=== PATIENT | male | born 1955 | race Caucasian/White ===

== ENCOUNTER 2019-06-05 08:45 | Day surgery (SDC) | payer BC ==
[~2019-06-05] VITALS: Ht 170.2 cm; Wt 120.7 kg
[~2019-06-05 08:45] MED LIST: ALDACTAZIDE 251 EACH PO; ARMOUR THYROID90 MG PO; ASPIR 8181 MG PO; CALCIUM-MAGNES1 EAC2 PO; CINNAMON500 MG PO; CO Q-10100 MG PO; FENOFIBRATE160 MG PO; GAVISCON ES TA1 EACH PO; GLYBURIDE5 MG PO; LEVEMIR100 UNIT/1 SUB-Q; LIPITOR40 MG PO; METFORMIN HCL500 MG PO; PEPCID AC10 MG PO; PROBIOTIC1 EAC1 PO; RAMIPRIL10 MG PO; VITAMIN D325 MC2 PO; VITAMIN E400 UNI4 PO; [UNRECOGNIZED DRUG - OTHER] PO; [UNRECOGNIZED DRUG - OTHER] PO
--- NOTE | 2019-06-05 13:42 | NUR ---
06/05/19 1342 Iris Mendoza 1328- PT ARRIVES TO PACU NONAROUSABLE TO NOXIOUS STIMULI WITH AN OPA IN PLACE. OXYGEN SAT HIGH 90'S TO 100% ON 10L VIA MASK. RESP EVEN AND UNLABORED. 1329- PT AROUSING AND TRYING TO PULL OUT OPA WITH HIS HANDS. PT INSTRUCTED TO OPEN HIS MOUTH. PT IS ABLE TO PERFORM THIS AND THE OPA IS REMOVED. OXYGEN TITRATED DOWN TO 6L VIA MASK. 1338- ICE PACK PLACED TO PT'S ABD WITH GOWN IN BETWEEN SKIN AND ICE PACK. PT GIVEN A FOLDED BLANKET TO USE TO SPLINT ABD. PT ENCOURAGED TO COUGH AND DEEP BREATHE. OXYGEN TITRATED OFF.
--- NOTE | 2019-06-05 14:14 | NUR ---
PT ARRIVES TO DS RM 4 FROM PACU AWAKE AND ALERT. PT STATES PAIN "LOW GRADE" AND RATES 4/10 IN ABD. PT RESP EVEN AND UNLABORED, RT CALLED TO SET UP PT PERSONAL CPAP MACHINE, SATS 92-97% ON RA. PT SPOUSE AT BEDSIDE, CALL LIGHT WITHIN REACH. SCD'S IN PLACE. PT PROVIDED ICED WATER.
[2019-06-05] MEDS ORDERED: NORCO 5-325 TA1 EACH PO (16:07)
--- NOTE | 2019-06-05 16:19 | NUR ---
[id number]: PT PROVIDED SUGAR FREE JELLO AND WATER REFILLED. PT SPOUSE REMAINS AT BEDSIDE, CALL LIGHT WITHIN REACH. [id number]: PT HAS URGE TO VOID, ASSISTED TO SIDE OF BED WITH 2 RNS. PT DENIES DIZZINESS OR NAUSEA WITH POSITION CHANGE. PT STANDS AT SIDE OF BED, TAKES 2 STEPS AND BEGINS TO FEEL "WOBBLY". PT ENCOURAGED TO SIT ON SIDE OF BED. PROVIDED URINAL. PT VOIDS APPROXIMATELY 25 MLS CONCENTRATED YELLOW URINE. PT BACK IN BED AND BLADDER SCANNED OF 77 MLS. 1545: DR. BRAVO NOTIFED OF PT URINARY RETENTION, GIVES VERBAL ORDER TO DISCHARGE PT WITHOUT VOIDING 100 MLS AND STATES TO EDUCATE PT TO RETURN TO ED IF UNABLE TO VOID ONCE HOME.
--- NOTE | 2019-06-05 16:27 | NUR ---
INSTRUCTED PT IF ANY URINARY PROBLEMS DR BRAVO WANTS HIM TO GO TO EMERGENCY DEPT. STATES OK.
--- NOTE | 2019-06-05 16:37 | NUR ---
PT PROVIDED DIET STANDING ROCK SODA AND SUGAR FREE PUDDING PER REQUEST. PT SPOUSE DOWNSTAIRS GETTING SOMETHING TO EAT. PT CALL LIGHT WITHIN REACH.
--- NOTE | 2019-06-05 16:42 | OR ---
[facility] [address], [place] [address] Signed DATE OF OPERATION: 06/05/2019 SURGEON: Lora Bravo MD PREOPERATIVE DIAGNOSES: Chronic cholecystitis and cholelithiasis. POSTOPERATIVE DIAGNOSES: Chronic cholecystitis and cholelithiasis. PROCEDURE PERFORMED: Laparoscopic cholecystectomy with intraoperative cholangiogram (prolonged and difficult at 1 hour and 35 minutes). ESTIMATED BLOOD LOSS: Minimal. FINDINGS: Radha clearly had chronic inflammatory changes to the gallbladder and surrounding tissues. He had 10 large stones in the gallbladder. The intraoperative cholangiogram was unremarkable. Due to the shape of his liver and his obesity, we had to have an additional nurse scrub in to help hold the gallbladder up and down the way. It took 1 hour 35 minutes to the entire surgery. The triangle of Calot was very deep, chronically inflamed, and very difficult dissection. This surgery took well over 30 minutes longer than usual. All these factors combined to make his procedure prolonged and difficult. INDICATIONS: Radha is a 63-year-old, obese, diabetic gentleman with a body mass index of 44. He has been having trouble particularly last few weeks with right upper quadrant abdominal pain. Although in retrospect he said it has been longer. He has had difficulty with the pain, bloating and belching, and anorexia. He has lost more than 18 pounds. He went to his primary care provider. An ultrasound of the right upper quadrant showed multiple stones within the gallbladder. Some measured up to 2 cm in diameter. There was borderline thickening to the gallbladder wall. The common bile duct was unremarkable at 5 mm. In the office, I gave him a brochure on the gallbladder. We looked at that carefully together. He understands the location and function of the gallbladder we discussed laparoscopic versus open cholecystectomy. He understands expected intraop and postop course. There is risk of surgery including, but not limited to bleeding, infection, scarring, change in contour of the skin, damage to bowel, damage to main bile duct, incisional hernias, and other unforeseen comorbidities. He had Electronically Signed By: LORA BRAVO MD 06/05/19 1642 PATIENT NAME: RADHA MERIDA OPERATIVE REPORT DATE OF : 57 REPORT #: [id number] PHYSICIAN: LORA BRAVO MD PCP: BHUMI NUNEZ MD REPORT IS CONFIDENTIAL AND NOT TO BE RELEASED WITHOUT AUTHORIZATION [address] [address] Signed expressed understanding and wished to proceed. PROCEDURE NOTE: I met with Radha and his in our preop area. I reviewed all this with Radha and his once again. After this, Radha was taken the operating room and placed in the supine position under general endotracheal tube anesthesia. He was given preoperative antibiotics along with subcutaneous heparin. SCDs were utilized. A Sparrow catheter was inserted with return of clear yellow urine without difficulty. He was then prepped and draped in the usual sterile fashion. All trocars were placed in usual positions under direct visualization of camera without difficulty. The gallbladder was grasped and elevated in the right upper quadrant. Multiple pictures were taken throughout for photodocumentation. We realized immediately we needed an additional nurse to scrub in due to the tension on the grasper as well as the depth of his gallbladder. Fortunately, we did not have to introduce an additional fan retractor. With slow meticulous dissection, we made our way through the triangle of Calot. We placed two clips on the cystic artery and it was divided. We then very carefully dissected out his very deep cystic duct near the neck of the gallbladder. The intraoperative cholangiocatheter was inserted initially held with our fallopian tube grasper. However, because of his significantly protuberant abdomen, we did not have room for the C-arm to clear our instrumentation. Consequently, we removed the fallopian tube grasper and used a clip in its place. Fortunately, this held and we were able to perform our intraoperative cholangiogram. We did not see any specific filling defects. The contrast flowed nicely into the duodenum. After this, the cystic duct stump was secured with a PDS Endoloop. Two clips were placed on the cystic duct stump to lyubov its location. The gallbladder was then very slowly and meticulously removed from the gallbladder fossa with the help of the cautery. His gallbladder was then very long, very wide, and it took additional time to get the gallbladder out. Eventually, we were able to place the gallbladder into our EndoCatch bag. The right upper quadrant was irrigated and suctioned out until clear. We used our laparoscopic suturing device to pass 0 Vicryl suture on either side of the fascia of the subxiphoid trocar site. This was tied down to close this fascia primarily. After this, the gas was allowed to escape and all the trocars were removed. We had to doubled the length of our trocar site at the umbilical supraumbilical trocar site. We did this to remove this rather large thickened gallbladder with 10 large stones inside. Consequently, we used four #0 Vicryl sutures in a tfarra-od-yophl and simple interrupted fashion to close the fascial defect. After this, local anesthetic was copiously injected in all trocar sites. Each trocar site was irrigated and suctioned out until clear. The dermis of each trocar site was closed with interrupted 3-0 subcuticular Monocryl sutures. We used fat 5-0 fast absorbing plain gut suture to close the skin at the umbilicus as well as the two right lateral 5 mm subcostal right subcostal trocar sites. Dry gauze and tape were then applied to all incisions. Radha was awakened from his anesthesia, extubated in the OR, and taken to recovery room in stable condition. We did remove the Sparrow catheter in the OR without difficulty. Electronically Signed By: LORA BRAVO MD 06/05/19 1642 PATIENT NAME: RADHA MERIDA OPERATIVE REPORT DATE OF : 57 REPORT #: [id number] PHYSICIAN: LORA BRAVO MD PCP: BHUMI NUNEZ MD REPORT IS CONFIDENTIAL AND NOT TO BE RELEASED WITHOUT AUTHORIZATION [address] [address] Signed Lora Bravo MD [facility] /[id number] cc: MD Lora James MD Copies: BHUMI NUNEZ MD, ANDREW L MD ~ Electronically Signed By: LORA BRAVO MD 06/05/19 1642 PATIENT NAME: RADHA MERIDA OPERATIVE REPORT DATE OF : 57 REPORT #: [id number] PHYSICIAN: LORA BRAVO MD PCP: BHUMI NUNEZ MD REPORT IS CONFIDENTIAL AND NOT TO BE RELEASED WITHOUT AUTHORIZATION
--- NOTE | 2019-06-05 16:57 | NUR ---
PT UP TO BATHROOM WITH 2 RN ASSIST. SLOW, BUT STEADY GAIT. PT ABLE TO VOID QS WITH NO PROBLEMS. PT BACK TO TO GET DRESSED, PT SPOUSE AT BEDSIDE.
--- NOTE | 2019-06-05 17:40 | NUR ---
1715: DC INSTRUCTIONS GIVEN IN PRESENCE OF PT AND SPOUSE, ALL QUESTIONS ADDRESSED. PAIN PRESCRIPTION PROVIDED IN DC PACKET AND HANDED TO SPOUSE. PT USES BATHROOM ONCE MORE BEFORE DC HOME VIA WC TO PERSONAL VEHICLE AT MAIN ENTRANCE OF HOSPITAL.
--- NOTE | 2019-06-09 12:32 | PATH ---
[facility] [address] [facility] [place], [place] [address] Signed SPECIMEN(S): A GALLBLADDER AND STONES SPECIMEN SOURCE: A. GALLBLADDER AND STONES CLINICAL HISTORY: Chronic cholecystitis, cholelithiasis. FINAL PATHOLOGIC DIAGNOSIS: Gallbladder, cholecystectomy: - Chronic cholecystitis. - Cholelithiasis. NAL:cml:C2NR MICROSCOPIC EXAMINATION: Histologic sections of all submitted blocks are examined by light microscopy. These findings, together with the gross examination, support the pathologic diagnosis. GROSS DESCRIPTION: The specimen, labeled "GP, gallbladder," is received in formalin and consists of Specimen: Previously opened gallbladder. Dimensions: 8.7 cm in length and 6.7 cm in inner circumference. Serosa: violaceous and smooth. Cystic Duct: unobstructed. Calculi: Numerous dark green gallstones within the container that range in size from 0.9-2.1 cm in greatest dimension. The gallstones shows faceted surfaces. Mucosa: Wooldridge-aragon and velvety. Wall thickness: 0.5 cm. Lymph node: No pericystic lymph nodes are grossly identified. Additional: None. Bilingual Spanish Inbound Sales sections are submitted in cassette (A1). JS (under the direct supervision of a pathologist) The Gross Description was prepared using a voice recognition system. The report was reviewed for accuracy; however, sound-alike word errors, addition and/or deletions may occur. If there is any question about this report, please contact Client Services. PERFORMING LABORATORY: The technical component was performed by Weeve, Ivett Chaves, PATIENT NAME: FUAD,RADHA D PATHOLOGY DATE OF : 57 REPORT #: [id number] PHYSICIAN: GONZALEZ DEVRIES PCP: BHUMI NUNEZ MD REPORT IS CONFIDENTIAL AND NOT TO BE RELEASED WITHOUT AUTHORIZATION [facility] [address] [place], [place] [address] [place] [address] (Banana Expert: Lala Swan MD; CLIA# [id number]). [facility] [address] [address] (Banana Expert: Agapito Boo MD; CLIA# [id number]). Diagnostician: Meredith Rivera MD Pathologist Electronically Signed 06/09/2019 Copies: ~ PATIENT NAME: RADHA MERIDA PATHOLOGY DATE OF : 57 REPORT #: [id number] PHYSICIAN: GONZALEZ DEVRIES PCP: BHUMI NUNEZ MD REPORT IS CONFIDENTIAL AND NOT TO BE RELEASED WITHOUT AUTHORIZATION
== END 2019-06-05 17:45 | disposition home or self-care (01) ==
LOC: DS 08:45
PROVIDERS: Colon & Rectal Surgery
PROC: BF13YZZ Fluoroscopy of Gallbladder and Bile Ducts using Other Contrast (ICD-10-PCS; 2019-06-05)
PROC: 0FT44ZZ Resection of Gallbladder, Percutaneous Endoscopic Approach (ICD-10-PCS; principal; 2019-06-05 10:15)
DX: K80.10 Calculus of gallbladder with chronic cholecystitis without obstruction (principal); I10 Essential (primary) hypertension; G47.33 Obstructive sleep apnea (adult) (pediatric); E78.5 Hyperlipidemia, unspecified; E55.9 Vitamin D deficiency, unspecified; E03.9 Hypothyroidism, unspecified; E11.9 Type 2 diabetes mellitus without complications; K21.9 Gastro-esophageal reflux disease without esophagitis; G89.29 Other chronic pain; Z79.4 Long term (current) use of insulin; E66.9 Obesity, unspecified; Z79.82 Long term (current) use of aspirin; Z79.899 Other long term (current) drug therapy; Z98.890 Other specified postprocedural states; Z68.41 Body mass index [BMI] 40.0-44.9, adult
CPT/HCPCS: 00790; 74300; J0690; J1100; J1644; J1815; J1885; J2250; J2310; J2405; J2704; J2765; J3010; J7121; Q9967

== ENCOUNTER 2020-11-04 11:57 | Inpatient (IN) | payer BC ==
[~2020-11-04] VITALS: Ht 167.6 cm; Wt 133.7 kg
[~2020-11-04 11:57] MED LIST changes: +NORCO 5-325 TA1 EACH PO
[2020-11-04] MEDS ORDERED: NP THYROID90 MG PO (12:37)
--- NOTE | 2020-11-04 19:11 | EKG ---
[facility] [address] [place] [address] Signed Normal sinus rhythm Right axis deviation Nonspecific intraventricular block Right ventricular hypertrophy Abnormal ECG When compared with ECG of 28-MAY-2019 08:23, No significant change was found Confirmed by MAURI ESCOTO MD ([id number]) on 11/04/2020 7:11:20 PM Electronically Signed By: MAURI ESCOTO MD 11/04/201910 PATIENT NAME: FUADRADHA Electrocardiogram DATE OF : 57 PHYSICIAN: MAURI ESCOTO MD REPORT #: [id number] REPORT IS CONFIDENTIAL AND NOT TO BE RELEASED WITHOUT AUTHORIZATION
--- NOTE | 2020-11-04 21:02 | NUR ---
PT WAS SWABBED FOR COVID 19
--- NOTE | 2020-11-04 21:48 | NUR ---
11/04/202147 Karen Burnham 2141: PT ARRIVES TO CCU ROOM 128, HE IS AWAKE AND ORIENTED. DOING WELL, NO PAIN AT THIS TIME.
--- NOTE | 2020-11-04 23:30 | NUR ---
PT RECOVERED FROM SURGERY IN ROOM 128, REPORT RECEIVED FROM COIL TAPERDELPIHNE Mccray AT 2200. PT IS ALERT/ORIENTED, DENIES PAIN. LUNGS CLEAR, RA. HR REGULAR. BOWEL TONES RARE, DENIES NAUSEA, ABDOMEN IS OBESE AND MODERATELY DISTENDED. LARGE MIDLINE INCISION IS COVERED WITH TAPE AND GAUZE, C/D/I. SIMONE TO RLQ DRAINGING SANGUINOUS FLUID, GAUZE DRESSING C/D/I. FRANZ PATENT, CONCENTRATED URINE. IV SITES INTACT, PATENT, IVF STARTED PER ORDERS. SCD'S ON. NG TO TO LOW CONTINUOUS SUCTION PER ORDERS, COFFEE-GROUND OUTPUT NOTED, SECUREMENT DEVICE ENFORCED WITH TAPE AND TUBING SECURED TO GOWN. MOIST ORAL SWABS PROVIDED FOR COMFORT. PT DENIES FURTHER NEEDS AT THIS TIME, CALL LIGHT AND BELONGINGS WITHIN REACH.
--- NOTE | 2020-11-04 23:39 | NUR ---
DR. ESCOTO IN TO CONSULT WITH PATIENT.
--- NOTE | 2020-11-05 00:17 | NUR ---
DR. ESCOTO ASKED THAT PT'S BLOOD SUGAR BE CHECKED: 390. PUT ORDERS IN FOR BLOOD SUGAR MONITORING AND INSULIN, 20 UNITS LANTUS ADMINISTERED AT THIS TIME. DISCUSSED PLAN OF CARE WITH PT, QUESTIONS ANSWERED.
--- NOTE | 2020-11-05 02:35 | NUR ---
CB, 11 UNITS SLIDING SCALE GIVEN PER ORDERS, DR. ESCOTO NOTIFIED. ASSESSMENT COMPLETED. PT CONTINUES TO DENY PAIN. DRESSINGS TO ABDOMEN REMAIN C/D/I. OUTPUT FROM SIMONE APPEARS MORE BROWN IN COLOR AT THIS TIME. NG REMAINS ON LOW CONTINUOUS SUCTION, OUTPUT STILL SOMEWHAT COFFEE-GROUND IN APPEARANCE. FRANZ EMPTIED, URINE REMAINS CONCENTRATED. NO OTHER CHANGES TO ASSESSMENT. PT DENIES FUTHER REQUESTS, CALL LIGHT WITHIN REACH.
--- NOTE | 2020-11-05 04:52 | NUR ---
PT RESTING WITH EYES CLOSED, NO APPARENT DISTRESS. RESPIRATIONS EVEN AND UNLABORED. VITAL SIGNS STABLE.
--- NOTE | 2020-11-05 06:18 | NUR ---
DELIVERY CREW MEMBER IN TO DRAW MORNING LABS. ASSESSMENT COMPLETED. NG FLUSHED WITH 30ML WATER, OUTPUT REMAINS COFFEE GROUND IN APPEARANCE, SECUREMENT DEVICE INTACT. MIDLINE DRESSING HAS SCANT AMOUNT OF SHADOWING NOTED, BUT IS OTHERWISE INTACT. SIMONE CONTINUES TO DRAIN BROWN FLUID, DRESSING INTACT. REMAINDER OF ASSESSMENT UNCHANGED. DENIES PAIN, NAUSEA, & SOB. CALL LIGHT WITHIN REACH.
--- NOTE | 2020-11-05 09:19 | CONS ---
[facility] [address] [place], [place] [address] Signed DATE OF CONSULTATION: 11/04/2020 CHIEF COMPLAINT: Epigastric abdominal pain. HISTORY OF PRESENT ILLNESS: Radah is a 65-year-old gentleman I had met last year when I did his laparoscopic cholecystectomy. In the meantime, he has developed supraumbilical trocar site incisional hernia. At his baseline, he has very large protuberant abdomen. He said in the last week he has had various abdominal symptoms, but this morning he awoke around 4:00 a.m. with severe pain in the epigastric region. He came to the emergency room for evaluation. Our emergency room has been extremely busy and finally gotten his lab work back and the CT scan. His white count is elevated at 24,000, but amazingly he does not appear particularly ill or toxic. He said his abdomen seems to be more protuberant than usual. The CT scan showed quite a bit of free air with thickening around the duodenum and antrum suggestive of perforated ulcer. I was therefore asked to see him as a general surgeon on-call. In the meantime, he has received cefepime and Flagyl. He likes to sit up on the edge of bed. He said it is better for his back. PAST MEDICAL HISTORY: 1. Diverticulosis. 2. Supraumbilical trocar site incisional hernia. 3. Diabetes. 4. Hyperlipidemia. 5. Hypothyroidism. 6. Hypertension. PAST SURGICAL HISTORY: Includes laparoscopic cholecystectomy in June [address] Bravo. SOCIAL HISTORY: He does not smoke or drink. He is to his Breanne at [phone]. Dr. Bhumi Slaughter is his primary care provider. He prefers the [facility]. FAMILY HISTORY: None. REVIEW OF SYSTEMS: He had 10 systems reviewed and no major findings since I saw him last year. ALLERGIES: None. Electronically Signed By: LORA BRAVO MD 11/05/20 0919 PATIENT NAME: RADHA MERIDA CONSULTATION DATE OF : 57 REPORT #: [id number] PHYSICIAN: LORA BRAVO MD PCP: BHUMI SLAUGHTER MD REPORT IS CONFIDENTIAL AND NOT TO BE RELEASED WITHOUT AUTHORIZATION [facility] [address] [place] [id number] Signed MEDICATIONS: 1. Aspirin. 2. Fenofibrate. 3. Cinnamon. 4. Calcium. 5. Magnesium. 6. Zinc. 7. Probiotic. 8. Vitamin D. 9. Fish oil. 10. Thyroid medication. 11. Metformin. 12. Glyburide. 13. Ramipril. 14. Insulin. 15. Atorvastatin. 16. Spironolactone. 17. Hydrochlorothiazide. PHYSICAL EXAMINATION: VITAL SIGNS: Blood pressure 131/76, heart rate 84, respiratory rate 18, temperature is 98.1, he is 95% on room air. He is 5 feet 6 inches at 120 kg. GENERAL: Radha is a 65-year-old gentleman who amazingly does not appear systemically ill or toxic. He is actually sitting up on the edge of his ER bed. He is quite cooperative. LUNGS: Clear to auscultation bilaterally. HEART: Regular rate and rhythm without murmurs. ABDOMEN: Obese, quite protuberant even at baseline, moderately firm and tender in the epigastric region. Amazingly, he does not seem to have peritonitis. LABORATORY DATA: His white blood count is 24,000, hemoglobin 17, neutrophils 85, bands are 5. BUN 23, creatinine 1.07, glucose 229, albumin is 4.1, lipase is 20. Urinalysis negative. RADIOGRAPHIC STUDIES: A CT scan of abdomen and and pelvis is reviewed along with the report. One could see a large amount of free air along with thickening around the antrum and duodenum with small amount of fluid. ASSESSMENT AND PLAN: Radha is a 65-year-old gentleman who appears to have a perforated duodenal and/or gastric ulcer. We are going to be taking him directly from the ER over to the operating room. He will initially go to the ICU afterwards for a day or two until he improves. I have reviewed all the above findings with Radha in detail. He understands the Electronically Signed By: LORA BRAVO MD 11/05/20 0919 PATIENT NAME: RADHA MERIDA CONSULTATION DATE OF : 57 REPORT #: [id number] PHYSICIAN: LORA BRAVO MD PCP: BHUMI SLAUGHTER MD REPORT IS CONFIDENTIAL AND NOT TO BE RELEASED WITHOUT AUTHORIZATION [address] [address] Signed laparotomy and we will probably go ahead and close the trocar site incisional hernia as well. There is risk including, but not limited to bleeding, infection, scarring, change in contour of the skin, damage to bowel, incisional hernias, pneumonia, heart attack, strokes, and other unforeseen comorbidities. He has expressed understanding and would like to proceed. Lora Bravo MD ALB/MODL /[id number] cc: MD Lora James MD Copies: BHUMI SLAUGHTER MD, ANDREW L MD ~ Electronically Signed By: LORA BRAVO MD 11/05/20918 PATIENT NAME: RADHA MERIDA CONSULTATION DATE OF : 57 REPORT #: [id number] PHYSICIAN: LORA BRAVO MD PCP: BHUMI SLAUGHTER MD REPORT IS CONFIDENTIAL AND NOT TO BE RELEASED WITHOUT AUTHORIZATION
--- NOTE | 2020-11-05 09:19 | OR ---
[facility] [address], [place] [address] Signed DATE OF OPERATION: 11/04/2020 SURGEON: Lora Bravo MD PREOPERATIVE DIAGNOSES: Perforated viscus. POSTOPERATIVE DIAGNOSIS: Perforated gastric ulcer. PROCEDURES: 1. Primary closure with Pj patch. 2. Drain placement. ESTIMATED BLOOD LOSS: Minimal. FINDINGS: Radha appeared to have a perforated ulcer on the lesser curve as the stomach joins the pyloric channel. There was a very large medicine tablet in the hole and therefore not a significant amount of bilious fluid and stomach contents had escaped. INDICATIONS: Radha is a 65-year-old gentleman I had known from last year when I did his laparoscopic cholecystectomy. He is 5 feet 6 inches tall at 265 pounds. He has a very large round protuberant abdomen. He came to the gallbladder surgery fine, but he developed supraumbilical trocar site incisional hernia. He continues to work as a here in [facility] [employer]. Since this morning around 4:00 a.m., he noticed rather severe pain in his epigastric area. It seemed to be quite abrupt. He came to the emergency room for evaluation. Our emergency room was extremely busy today with several codes and so forth. Radha was quite distended and there was some thought that he might have a bowel obstruction. He did not appear systemically ill or toxic whatsoever. Eventually, his blood work came back with a white count of 24,000. He was not acidotic. Other labs were fine. His abdominal x-rays were not particularly concerning but possibly a bowel obstruction. Then he underwent his CT scan and there were inflammatory changes around the pyloric bulb and in the antrum of the stomach with a large amount of free air. There was some fluid in the abdomen but not tremendous amounts. I had been called to see him in the emergency room as a general surgeon on-call. In the meantime, he was given cefepime and Flagyl along with subcutaneous heparin. I had met with Radha and I had reviewed the above findings with him in detail. I explained to him this more than Electronically Signed By: LORA BRAVO MD 11/05/20 0919 PATIENT NAME: RADHA MERIDA OPERATIVE REPORT DATE OF : 57 REPORT #: [id number] PHYSICIAN: LORA BRAVO MD PCP: BHUMI NUNEZ MD REPORT IS CONFIDENTIAL AND NOT TO BE RELEASED WITHOUT AUTHORIZATION [facility] [address], [place] [address] Signed likely represented a perforated ulcer of either the stomach or his pyloric channel. We can generally close these primarily and cover them with a Pj patch. He understands there is risk to surgery including, but not limited to bleeding, infection, scarring, change in contour of the skin, damage to bowel, continued leak or nonhealing of his ulcer or recurrent ulcer, incisional hernias and other unforeseen comorbidities. He had expressed understanding and wished to proceed. PROCEDURE NOTE: Radha was brought down to our operating room and placed in the supine position under general endotracheal tube anesthesia. He underwent bilateral subcostal blocks by our nurse construction management assistant to help with postoperative pain control. A Sparrow catheter had been inserted with return of clear yellow urine. SCDs were utilized. He was prepped and draped in the usual sterile fashion. We made a midline incision in the epigastric area above the hernia near his umbilicus. We left a bridge of fascia between there, probably 3 cm in length. We were able to enter the abdomen without much difficulty. He did have a little air in the stomach, but not as much as we anticipated. He had a typical soiling up around the antrum of the stomach in the duodenum. It took a few minutes to suction out some of the bilious turbid fluid and we finally found his perforated ulcer, classic about 1 cm in diameter. It appears to be on the lesser curve of the stomach and approaches the pyloric channel. But with the surrounding inflammation of the fat, it was hard to ascertain the exact location. He had adhesions of the omentum from his previous gallbladder surgery. It took just a minute to take those down. We found that he had a very large medicine tablet actually in the ulcer itself. It took a minute to remove that with a Pean clamp. The size of is quite impressive. It is at least a cm in diameter. After this, the area was irrigated and suctioned out until clear and at 1st we could not palpate the NG tube in his stomach. Later it was a better position. In the meantime, we were able to evacuate quite a bit of fluid out of his stomach and suction that out until clear. We then closed the ulcer defect with 3 interrupted 0 silk sutures. We then brought the omentum up over the area of his ulcer and was held in place with multiple interrupted 2-0 silk sutures. After this, we placed a #10 flat Tony drain over this area and brought it out through the right subcostal area through one of his previous 5 mm trocar sites. It was held in place at the skin with an interrupted 2-0 nylon suture. We then closed the midline fascia with interrupted [id number] #1 PDS sutures. The wound was irrigated and suctioned out until clear. We closed the dermis with multiple interrupted 3-0 subcuticular Monocryl sutures. The skin edges were reapproximated with mihaela. Dry gauze and tape were then applied. His Sparrow catheter was left in place. Radha was awakened from his anesthesia, extubated in the OR, and taken to recovery room in stable condition. Electronically Signed By: LORA BRAVO MD 11/05/20 0919 PATIENT NAME: RADHA MERIDA OPERATIVE REPORT DATE OF : 57 REPORT #: [id number] PHYSICIAN: LORA BRAVO MD PCP: BHUMI NUNEZ MD REPORT IS CONFIDENTIAL AND NOT TO BE RELEASED WITHOUT AUTHORIZATION [address] [address] Signed Lora Bravo MD ALB/MODL /[id number] cc: MD Bhumi Gerardo MD Copies: LORA BRAVO MD, JONATHAN MD ~ Electronically Signed By: LORA BRAVO MD 11/05/20 0919 PATIENT NAME: RADHA MERIDA OPERATIVE REPORT DATE OF : 57 REPORT #: [id number] PHYSICIAN: LORA BRAVO MD PCP: BHUMI NUNEZ MD REPORT IS CONFIDENTIAL AND NOT TO BE RELEASED WITHOUT AUTHORIZATION
--- NOTE | 2020-11-05 09:30 | NUR ---
DR. BRAVO HERE TO SEE PATIENT. ORDERS RECIEVED. IVF INCREASED O 175 ML/HR PER MD ORDERED.
--- NOTE | 2020-11-05 09:40 | NUR ---
C/O PAIN IN ABD.
--- NOTE | 2020-11-05 09:58 | NUR ---
DILAUDID 1 MG IV GIVEN FOR PAIN.
--- NOTE | 2020-11-05 12:00 | NUR ---
no change in assessment.
--- NOTE | 2020-11-05 13:36 | NUR ---
DILAUID 1 MG IV REPEATED FOR POST OP PAIN.
--- NOTE | 2020-11-05 13:45 | NUR ---
ABD DRESSING AND SIMONE DRESSING DC'D PER MD ORDERS. SAT AT BEDSIDE, SPONGE BATH GIVEN. PATIENT THEN AMBULATE IN ROOM THEN TO CHAIR. TOLERATED WELL.
--- NOTE | 2020-11-05 15:30 | NUR ---
CONTINUES TO SIT IN CHAIR. DENEIS NAUSEA OR NEED FOR PAIN MEDICATION. VISITING WITH .
--- NOTE | 2020-11-05 16:11 | NUR ---
VISITING WITH . DENIES PAIN. WILL DO ASSESSMENT AFTER PT VISITS W/. IVF CONTINUE TO INFUSE AT 175 ML/HR.
--- NOTE | 2020-11-05 17:03 | NUR ---
BACK TO BED AFTER SITTING IN CHAIR FOR 3 HRS. AMBULATED IN ROOM PRIOR TO RETURN TO BED. IS STABLE ON FEET. DENEIS PAIN OR NAUSEA.
--- NOTE | 2020-11-05 17:25 | NUR ---
DR. BRAVO UPDATE ON PATIENT STATUS AND U/O. NO FUTHER ORDERS AT THIS IFRAH.
--- NOTE | 2020-11-05 20:12 | NUR ---
PATIENT WOKE EASILY WHEN RN ENTERED ROOM. REPORTS PAIN IS MANAGABLE AT THIS TIME. VS STABLE. NO NAUSEA. NG TUBE IN PLACE. IV SITE WNL, FLUIDS PER ORDER. ACCU CHECK DONE, SSI AND LANTUS GIVEN PER ORDER.
--- NOTE | 2020-11-05 21:00 | NUR ---
PATIENT PROVIDED WITH EVENING ABX. IV SITE WNL. FRANZ EMPTIED FOR 175 MLS ALEXANDER COLORED URINE. NG TUBE FLUSHED WITH 20 TAP WATER AND CONNECTED BACK TO CONTINUOUS LOW SUCTION. OUTPUT IS A YELLOW COLOR. SCANT OUTPUT IN SIMONE DRAIN. MIDLINE INCISION IS WELL APPROXIMATED. ABD IS SOFT, MILDLY TENDER AND BOWEL SOUNDS ARE RARE. NO NAUSEA. ENCOURAGED PATIENT TO CHANGE POSITIONS NEEDED AND USE IS. VS STABLE. PATIENT DENIED FURTHER NEEDS. CALL LIGHT IN REACH.
--- NOTE | 2020-11-05 22:30 | NUR ---
PT C/O ABD PAIN 4-5/10, 5 WITH COUGHING. GIVEN 1MG DILAUDID IV SLOWLY. PT STATING STARTING TO RELAX.
--- NOTE | 2020-11-06 | NUR ---
PATIENT RESTING IN BED. REPORTS IMPROVED PAIN CONTROL. HAS BEEN SLEEPING OFF AND ON. URINE OUTPUT CONTINUES TO BE BOARDERLINE ADEQUATE AND DARK ALEXANDER IN COLOR. IV FLUIDS PER ORDER, SITE WNL. ABD IS SOFT. SIMONE HAS NOT PUT OUT ANY DRAINAGE AT THIS TIME. VS STABLE.
--- NOTE | 2020-11-06 02:36 | NUR ---
ACCU CHECK AND SSI PROVIDED PER ORDER. PATIENT REPORTS BEING COMFORTABLE. DENIES NEEDS. FRANZ DRAINING EASILY. NG TUBE IN PLACE. IV FLUIDS PER ORDER, SITE WNL.
--- NOTE | 2020-11-06 04:00 | NUR ---
PATIENT PROVIDED WITH PRN DILAUDID FOR PAIN 5/10. PATIENT DENIES NAUSEA. ABD IS SOFT. ASSISTED PATIENT TO REPOSITION. NG TUBE IN PLACE, CONTINUOUS SUCTION. MINIMAL OUTPUT. SIMONE HAS SCANT DRAINAGE.
--- NOTE | 2020-11-06 06:54 | NUR ---
PT TRANSFERED FROM CCU TO MED SURG FLOOR VIA BED. PT TOLERATED WELL. PT ORIENTED TO THIS ROOM AND POC FOR THIS SHIFT. DENIES QUESTIONS OR NEEDS AT THIS TIME. CALL LIGHT INR EACH.
--- NOTE | 2020-11-06 08:25 | NUR ---
Admin Dilaudid 1mg IVP for 5/10 abd pain.
--- NOTE | 2020-11-06 13:41 | NUR ---
Admin dilaudid 1mg IVP for reports of 7/10 abd pain. Patient walked in wallway with this RN; standby assist using walker, tolerated well.
--- NOTE | 2020-11-06 16:03 | NUR ---
Dilaudid 1mg IVP admin for reports of 7/10 abd pain. NG intact, patent with green gastric output. Bowel tones present throughout, pt reports +flatus.
--- NOTE | 2020-11-06 17:46 | NUR ---
Patient resting in bed, respirations even and non labored. NG intact, patent with brown drainage. Patient reports intermittent gas pains. Encouraged patient to walk frequently to help with GI motility. Pain is tolerable at this time. IV remains patent. No needs at this time. Call light within reach.
--- NOTE | 2020-11-06 19:06 | NUR ---
Admin 1mg dilaudid IVP for reports of 7/10 abd pain.
--- NOTE | 2020-11-06 19:36 | NUR ---
Asher red blood noted from NG. Irrigated with 30ml free water, no blood clots noted. Abdomen appears unchanged from earlier today. Incision well approx, no new drainage noted. Dr. Dc notified. New order obtained for wall suction to be LIWS. NG set to LIWS at this time.
--- NOTE | 2020-11-06 19:50 | NUR ---
RECEIVED REPORT FROM DELPHINE JIMENEZ. pt RESTING IN BED. RECENTLY REPOSITIONED. REPORTS THAT PAIN IS "BETTER" RATES 3/10 AT THIS TIME. NEW BAG OF LR HUNG. INCISION DRY AND OPEN TO AIR EXCEPT SMALL ADHESIVE BANDAGE. DRY SHADOWING NOTED ON BANDAGE. EDGES WELL APPROXIMATED. SCANT SS DRAINAGE NOTED IN DRAIN. FRANZ PUTTING OUT CONCENTRATED URINE. IV DC'd IN RIGHT HAND IT IS NO LONGER PATENT. PRESSURE DRESSING APPLIED. NG TUBE HAS DARK RED, BROWNISH OUTPUT. LOW INTERMITTENT SUCTION. DISCUSSED PLAN OF CARE WITH pt. ALL QUESTIONS ANSWERED. CALL LIGHT WITHIN REACH. WHITEBOARD UPDATED.
--- NOTE | 2020-11-06 20:41 | NUR ---
PT REQUESTED SUPPORT BLANKET FOR HIS ABDOMEN, DID COUGH, PRODUCTIVE. STATED MUCH RELIEF. STATED HE WAS BLECHING SEVERAL TIMES AND THAT MADE HIM FEEL BETTER.
--- NOTE | 2020-11-06 21:40 | NUR ---
IN TO DO ANTIBIOTIC AND ASSESSMENT. pt RESTING IN BED. REPORTED 3/10 PAIN. PASSING GAS. BOWEL TONES ARE HYPOACTIVE. INCISION AND DRAINAGE REMAINS THE SAME PRIOR ASSESSMENT. NG TUBE HAS BROWN OUTPUT. LIS. IV ANTIBIOTIC INFUSING PER ORDERS. SCROTAL EDEMA NOTED, ELEVATED TOLERATED. LEGS ELEVATED TOLERATED. NO FURTHER REQUESTS AT THIS TIME. CALL LIGHT WITHIN REACH.
--- NOTE | 2020-11-07 00:42 | NUR ---
1 PA TO THE BATHROOM. PATIENT HAD SMEAR BOWEL MOVEMENT. PATIENT IS BACK IN BED. DELPHINE CHRISTIANSON WAS WITH PATIENT. ICE CHIPS PROVIDED.
--- NOTE | 2020-11-07 00:51 | NUR ---
report received from previous rnsalty. pt up to bathroom and back to bed with seed analysis laboratory assistant assist. pt rates pain 5/10 to abd. requests prn dilaudid, administered. ng tube irrigated per pt request. immediate return of clear fluid noted in tubing. pt denies further needs. call light in reach.
--- NOTE | 2020-11-07 02:02 | NUR ---
MAINSPRING WINDER TO ROOM FOR IV PUMP ALARMING. SCHEDULED ACCUCHECK PERFORMED. PT STATES THAT PAIN IS WELL CONTROLLED AFTER PRN DILAUDID. PT DENIES FURTHER NEEDS. CALL LIGHT IN REACH.
--- NOTE | 2020-11-07 04:05 | NUR ---
ART GILDER TO ROOM FOR IV PUMP ALARMING. PT STATES THAT PAIN IS WELL CONTROLLED. REQUESTS ADDITIONAL ICE CHIPS. STATES THAT HE CAN FEEL MOVEMENT IN HIS ABDOMEN. DENIES NEED TO HAVE BM AT THIS TIME. DENIES FURTHER NEEDS. CALL LIGHT IN REACH.
--- NOTE | 2020-11-07 06:49 | NUR ---
PT ASSESSMENT COMPLETE. PT STATES THAT PAIN IS WELL CONTROLLED. DENIES SOB OR NAUSEA. REPORTS OCCASIONAL PRODUCTIVE COUGH, CLEAR PHLEGM REPORTED. BT'S ACTIVE. PT REPORTS PASSING GAS MULTIPLE TIMES. ABD VERY DISTENDED. TENDER TO PALPATION. MIDLINE INCISION ANJEL WITH SMALL BANDAID TO SUPERIOR ASPECT, SM SHADOWING NOTED TO BANDAID. BLE AND SCROTUM EDEMA NOTED. SHANK BREAKER AT BEDSIDE TO OBTAIN LABS. PT DENIES FURTHER NEEDS. CALL LIGHT IN REACH.
--- NOTE | 2020-11-07 07:34 | NUR ---
Patient awake sitting up in bed, a&ox4. Patient reports passing flatus, positive bowel tones x4 quadrants. NG intact, patent set to LIWS; light brown gastric content noted. Tony drain to RUQ; closed to bulb suction. Patient has no needs at this time. Personal supplies and call light within reach.
--- NOTE | 2020-11-07 07:59 | NUR ---
Dilaudid 1mg IVP admin for reports of 5/10 abdominal pain.
--- NOTE | 2020-11-07 09:25 | NUR ---
PATIENTS VITALS CHARTED. CALL LIGHT IN REACH. NOTHING ELSE NEEDED. PATIENT AND THIS LEATHER COVERER WILL WALK WITH PATIENT.
--- NOTE | 2020-11-07 11:35 | NUR ---
SPOKE WITH PATIENT IN ROOM. PATIENT AWAKE, ORIENTED. LIVES AT HOME WITH . IS EMPLOYED. DRIVES. HAS STAIRS INTO HOME AND STAIRS TO HIS OFFICE INSIDE OF HOUSE. BOTH HAVE RAILS. THEY DO HAVE A COUPLE CANES IN THE HOUSE. ONLY DME HE USES IS CPAP WITH NO OXYGEN NEED. THEY HAVE TUB/SHOWER COMBO. THEY DO HAVE TOILET BARS. HE STATES HE IS NOT CONCERNED IN AFFORDING MEDS/FOOD/UTILITIES. WILL DRIVE HIM HOME. HE HAS NO KNOWN BARRIERS TO DISCHARGING HOME AT THIS TIME. WE DISCUSSED USUAL POST-OP NEEDS. ENCOURAGED QUESTIONS AND TO UNDERSTAND HIS NEEDS/MEDS AT DISCHARGE.
--- NOTE | 2020-11-07 12:14 | NUR ---
Patient walked with RETAIL SALES CLERK. Tolerated well with FWW.
--- NOTE | 2020-11-07 12:24 | NUR ---
PATIENT WALKED WITH THIS OXYGEN FURNACE OPERATOR DOWN 1 MELENDEZ TO THE END. PATIENT SITTING ON COUCH. CALL LIGHT IN REACH
--- NOTE | 2020-11-07 13:36 | NUR ---
report received on this pt care assumed. pt currently at mri.
--- NOTE | 2020-11-07 14:20 | NUR ---
CALL LIGHT ANSWERED. PT REQUESTS PRN PAIN MED FOR 4/10 ABDOMINAL PAIN. PT STATES HE HAS "TWINGES" OF SHARPER PAIN. 1MG IV DILAUDID ADMINISTERED AT THIS TIME. ASSISTED PT BACK TO BED. FRESH MOUTH SWABS PROVIDED.
--- NOTE | 2020-11-07 14:46 | NUR ---
PATIENT SLEEPING VITALS CHARTED. CALL LIGHT IN REACH
--- NOTE | 2020-11-07 18:11 | NUR ---
PATIENT RESTING. VITALS AND I&O'S CHARTED. PATIENT STATED HE WILL CALL WHEN HE NEEDS ANYTHING. CALL LIGHT IN REACH
--- NOTE | 2020-11-07 18:37 | NUR ---
IN ROOM TO CHECK ON PT; IV CEFEPIME IS COMPLETE. PT DENIES NEEDS AT THIS TIME. CALL LIGHT WITHIN REACH.
--- NOTE | 2020-11-07 19:05 | NUR ---
BEDSIDE REPORT RECEIVED FROM OFFGOING RNJAYLAN.
--- NOTE | 2020-11-07 21:00 | NUR ---
PT ASSESSMENT COMPLETE. PT REPORTS ABD PAIN THAT HAS WORSENED WITH OCCASIONAL COUGH. PRN DILAUDID ADMINISTERED, SEE EMAR. PT ENDORSES SOB WHILE COUGHING, BUT STATES THAT IT RESOLVES QUICKLY WHEN HE IS NOT COUGHING. STATES THAT HE IS HAVING SCANT MUCOUS PRODUCTION. PT DENIES NASUEA. STATES THAT HE IS PASSING OCCASIONAL FLATUS. BT'S ACTIVE. ABD DISTENDED, NONTENDER TO PALPATION. MIDLINE INCISION ANJEL WITH BANDAID WITH SMALL AMOUNT OF OLD SHADOWING PRESENT. NG TUBE TO LIWS WITH GREENISH YELLOW DRAINAGE. IV FLUSHED, WNL. WATER REFRESHED FOR MOUTH SWABS. PT DENIES FURTHER NEEDS AT THIS TIME. CALL LIGHT IN REACH.
--- NOTE | 2020-11-07 21:30 | NUR ---
V/S AND I&O AND BLOOD SUAGR CHECK DONE AND DOCUMENTED. FRANZ CARE DONE.
--- NOTE | 2020-11-07 23:30 | NUR ---
PT RESTING IN BED, WAKES EASILY WHEN UTILIZATION MANAGEMENT MANAGER OPENS THE DOOR. STATES THAT HE IS DOING OKAY. DENIES NEEDS AT THIS TIME. CALL LIGHT IN REACH.
--- NOTE | 2020-11-08 02:30 | NUR ---
PT RESTING IN BED WITH EYES CLOSED. WAKES EASILY TO TOUCH AND NAME. SCHEDULED MEDICATIONS ADMINISTERED. PT ASSESSMENT COMPLETE. PT DENIES PAIN, NASUEA, OR SOB. PT CONTINUES TO HAVE OCCASSIONAL PRODUCTIVE COUGH. BT'S ACTIVE. PT CONTINUES TO REPORT OCCASIONAL FLATUS. ABD DISTENDED. NON TENDER TO PALPATION. NG TO LIWS WITH YELLOW DRAINAGE PRESENT. NG SECUREMENT DEVICE COMING LOOSE FROM PT'S NOSE, REPLACED AT THIS TIME. PT TOLERATED WELL. IV FLUSHED, WNL. PT DENIES FURTHER NEEDS AT THIS TIME. CALL LIGHT IN REACH.
--- NOTE | 2020-11-08 04:23 | NUR ---
PT REQUESTING PRN PAIN MEDCIATION FOR 4/10 ABD PAIN. ADMINISTERED, SEE EMAR. PT DENIES FURTHER NEEDS AT THIS TIME. STATES THAT HE WOULD LIKE TO SLEEP FOR A WHILE LONGER. CALL LIGHT IN REACH.
--- NOTE | 2020-11-08 06:46 | NUR ---
NG TO FRANZ GRAVITY PER ORDER. IV DECREASED TO 85. NG SECUREMENT DEVISE REAPPLIED.
--- NOTE | 2020-11-08 07:25 | NUR ---
BEDSIDE HANDOFF REPORT RECEIVED FROM MACHINE FEEDER RN. PT RESTING IN BED. PT DENIES NEEDS AT THIS TIME.
--- NOTE | 2020-11-08 08:24 | NUR ---
PT AWAKE IN ROOM. WHITE BOARD UDPATED. WARM CLOTH GIVEN FOR FACE. PT PLANS TWO WALKS WITH THIS CATH LAB RADIOLOGICAL TECHNOLOGIST TODAY. CALL LIGHT WITHIN REACH. NO FURTHER NEEDS AT THIS TIME.
--- NOTE | 2020-11-08 08:25 | NUR ---
PT RESTING IN BED. PT ON ROOM AIR, LUNG SOUNDS CLEAR, DENIES SOB. PT WITH HYPOACTIVE BOWEL TONES, DENIES NAUSEA, NG TO GRAVITY DRAIN, ABD DISTENDED AND FIRM. SIMONE DRAIN WITH SMALL AMOUNT OF SEROUS FLUID. ABD INCISION WITH OREN, OLD DRAINAGE TO BANDAID. CMS INTACT, WITHOUT EDEMA, SCDS IN PLACE. IV FLUIDS INFUSING LR AT 85, IV ABX INFUSING. BLOOD GLUCOSE 85, DISCUSSED LANTUS DOSE WITH DR. JIANG, ORDER TO DC LANTUS. DISCUSSED PLAN OF CARE FOR THE DAY, PT TO WALK IN MELENDEZ THIS TIME. PT DENIES OTHER NEEDS AT THIS TIME.
--- NOTE | 2020-11-08 09:13 | NUR ---
PT AND THIS FLEX O WRITER OPERATOR WALKED WITH FWW TO [facility] END OF HALLWAY FROM ROOM AND BACK. PT SITTING UP ON COUCH. CALL LIGHT WITHIN REACH. NO FURTHER NEEDS AT THIS TIME.
--- NOTE | 2020-11-08 10:51 | NUR ---
PATIENT BACK INTO BED. VITALS AND I&O'S CHARTED. FRANZ EMPTIED. CALL LIGHT IN REACH NOTHING ELSE NEEDED AT THIS TIME
--- NOTE | 2020-11-08 11:22 | NUR ---
PT REQUESTING PAIN MEDICATION, GIVEN 1.0MG IV DILAUDID. PT DENIES OTHER NEEDSA AT THIS TIME.
--- NOTE | 2020-11-08 13:00 | NUR ---
Spoke with pt. He states he feels better, plans on remaining in the hospital for at least one more week. NG, martinez, and IV antibiotics continue. Pt states he was able to walk in the agarwal and it was better this time.
--- NOTE | 2020-11-08 14:30 | NUR ---
PT RESTING IN BED. PT STATES PAIN TOLERABLE AT THIS TIME. PT COMPLAINT OF RIGHT THIGH PAIN, ENCOURAGED TO GET OOB AND WALK. IV CEFEPIME INFUSION STARTED. BLOOD GLUCOSE 111. ELECTRICAL TECH/PROJECT MANAGER TO ASSIST PT TO WALK IN MELENDEZ.
--- NOTE | 2020-11-08 14:51 | NUR ---
PT WALKING IN MELENDEZ WITH JESSICA TODD. TOLERATING WELL.
--- NOTE | 2020-11-08 15:08 | NUR ---
PATIENT AMBULATED IN HALLWAY, HALF A LAP AROUND NURSES STATION. PATIENT NOW BACK TO BED. CALL LIGHT IN REACH. NO FURTHER NEEDS AT THIS TIME.
--- NOTE | 2020-11-08 15:19 | NUR ---
PT AWAKE IN BED CHATTING. FRANZ EMPTIED. CALL LIGHT WITHIN REACH. NO FURTHER NEEDS AT THIS TIME.
--- NOTE | 2020-11-08 18:01 | NUR ---
PT ON ROOM AIR, LUNG SOUNDS CLEAR. NG TO GRAVITY, SMALL AMOUNT OF GREENISH/BROWN FLUID. PT WITH SIMONE DRAIN, NO SIGNIFICANT OUTPUT THIS SHIFT. ABD DISTENDED, BOWEL TONES ACTIVE, DENIES NAUSEA, PASSED FLATUS. WALKED IN MELENDEZ X2. FRANZ WITH QS URINE, RECEIVED LASIX THIS AM.
--- NOTE | 2020-11-08 19:10 | NUR ---
REPORT RECEIVED FROM DAY SHIFT RN. PT LYING IN BED ALERT AND ORIENTED. DENIES NEEDS AT THIS TIME. WHITE BOARD UPDATED. CALL LIGHT IN REACH.
--- NOTE | 2020-11-08 20:47 | NUR ---
EVENING ASSESSMENT COMPLETE. SCHEDULED MEDS ADMINISTERED PER EMAR. PT REPORTS PAIN IS TOLERABLE. DENIES NAUSEA. ABD FIRM AND DISTENDED. MIDLINE INCISION WELL APPROXIMATED WITH OREN. NO REDNESS OR DRAINAGE NOTED. BOWEL TONES ACTIVE. PT REPORTS FLATUS. SCD'S IN PLACE. FRANZ PATENT DRAINING CONCENTRATED URINE. NGT TO GRAVITY WITH SCANT AMOUNT GREEN/BROWN DRAINAGE. SIMONE WITH SCANT AMOUNT SEROUS DRAINAGE. PT DENIES QUESTIONS OR CONCERNS. CALL LIGHT IN REACH.
--- NOTE | 2020-11-08 21:18 | NUR ---
V/S AND I&O TAKEN AND RECORDED. FRANZ CARE DONE.
--- NOTE | 2020-11-08 23:15 | NUR ---
PT UP TO AMB ONE LAP AROUND NURSING UNIT WITH SBA AND FWW. SHERIDAN WELL. BACK TO BED. PILLOW CASES PLACED UNDER ABD SKIN FOLDS PT CONCERNED WITH MOISTURE DUE TO SKIN TOUCHING. SKIN INTACT AT THIS TIME. NO REDNESS OR RASH NOTED. PRN FOR PAIN ADMINISTERED FOR 4/10 ABD PAIN. PT DENIES FURTHER NEEDS AT THIS TIME. CALL LIGHT IN REACH.
--- NOTE | 2020-11-09 01:50 | NUR ---
IV ABX INFUSING ORDERED. INSULIN ADMINISTERED PER SLIDING SCALE FOR CBG OF 151. ASSISTED PT TO REPOSITION IN BED. ORAL CARE SUPPLIES PROVIDED. NO FURTHER NEEDS. CALL LIGHT IN REACH.
--- NOTE | 2020-11-09 03:51 | NUR ---
IV PUMP ALARMING. IN ROOM TO ASSESS. PT REPORTS PAIN IS TOLERABLE AT THIS TIME. DENIES FURTHER NEEDS.
--- NOTE | 2020-11-09 04:05 | NUR ---
CALL LIGHT ANSWERED. PT REQUESTING ASSISTANCE TO REPOSITION SCROTUM "THEY ARE BEING PINCHED". IN TO ASSIST. SCROTUM EDEMATOUS, ELEVATED ON PILLOW CASE. PT ABLE TO USE TRAPEZE TO REPOSITION SELF IN BED. NO FURTHER NEEDS.
--- NOTE | 2020-11-09 04:20 | NUR ---
CALL LIGHT ON. IV PUMP BEEPING, NEW BAG OF FLUID HUNG. NO REQUESTS AT THIS TIME. CALL LIGHT WITHIN REACH.
--- NOTE | 2020-11-09 05:00 | NUR ---
CALL LIGHT ON. IV PUMP BEEPING, ERROR RESOLVED. NO REQUESTS AT THIS TIME. CALL LIGHT WITHIN REACH.
--- NOTE | 2020-11-09 06:00 | NUR ---
VS AND I&O COMPLETE. ASSESSMENT UNCHANGED. PRN FOR PAIN ADMINISTERED FOR 3/10 ABD PAIN. ORAL CARE SUPPLIES PROVIDED.
--- NOTE | 2020-11-09 07:20 | NUR ---
TOOK BEDSIDE REPORT ON PT. PT LAYING IN BED CURRENTLY. DENIES NEEDS AT THIS TIME.
--- NOTE | 2020-11-09 08:15 | NUR ---
NG TUBE REMOVED BY THIS RN. NO COMPLICATION.
--- NOTE | 2020-11-09 10:24 | NUR ---
PATIETN AWAKE IN BED, VITALS AND I&OS CHARTED. FRANZ EMPTIED. 2 PIECES OF HARD CANDY PROVIDED, OK'D BY RN TARYN. CALL LIGHT IN REACH, NO OTHER NEEDS AT THIS TIME
--- NOTE | 2020-11-09 13:58 | NUR ---
PATIENT AWAKE IN BED, RN AT BEDSIDE. VITALS AND I&OS CHARTED. FOELY EMPTIED. PATIENT AGREED TO AMBULATE HALLS THIS AFTERNOON, THIS POLISHING PAD MOUNTER WILL BE BACK TO ASSIST. CALL LIGHT IN REACH, NO OTHER NEEDS AT THIS TIME
--- NOTE | 2020-11-09 16:11 | NUR ---
Ambulated one lap around unit, in halls, with JESSICA Brooks.
--- NOTE | 2020-11-09 16:13 | NUR ---
SBA AROUND NURSES STATION AND BACK TO ROOM. LINENS CHANGED
--- NOTE | 2020-11-09 16:26 | NUR ---
PATIENT UP FOR WALK IN HALLWAY, BED BATH DONE, LINENS AND GOWN CHANGED. PATIENT IS RESTING IN BED WITH SCD'S ON. PATIENT RATES ABD PAIN 4/5 AFTER ACTIVITY AND IS REQUESTING MEDICATIONS.
--- NOTE | 2020-11-09 18:54 | NUR ---
PT SPENT HIS DAY LAYING IN BED WATCHING TV. HE AMBULATED WITH STAFF AND REPORTS "IT WENT PRETTY WELL". SIMONE DRAIN ON PT'S R SIDE APPEARS TO BE IN -TACT AND WELL PLACED. SURGICAL SITE ON PT'S MID ABD APPEARS TO BE IN-TACT WITH NO DRAINAGE NOTED. PT'S ABD APPEARS TO BE DISENDED AND TIGHT. PT REPORTS THIS IS CHRONIC. PT IS PASSING GAS. DENIES NEEDS AT THIS TIME.
--- NOTE | 2020-11-09 20:10 | NUR ---
CATH CARE COMPLETE AT THIS TIME
--- NOTE | 2020-11-09 20:10 | NUR ---
ROUNDED CHARGE. COMPUTER NOT FUNCTIONING IN ROOM, DISCUSSED WITH PATIENT CHANGING ROOMS. pt COMPLIANT, PLAN TO AMBULATE TO NEW ROOM. VSS. MARIA M EMPTIED. PRIMARY RN IN ROOM.
--- NOTE | 2020-11-09 20:12 | NUR ---
in bed, room air, c/o abd pain, medicated with Dilaudid. Abd very firm and distenden hypoactive bowel tones present. R parul intact, very scant amount of serous drainage. generalized edema noted. IVF infusing. CBG 197, received 5 units SQ Reg insulin ss. NPO, does own mouth care. f/c patent. alert and oriented. Pt instructed on moving to another room, stated understanding
--- NOTE | 2020-11-09 20:59 | NUR ---
moved to room 112. walked w 1PA/FWW. tolerated well, on room air. f/c parul patent. scds in place, helped with repositioning NPO
--- NOTE | 2020-11-09 21:53 | NUR ---
CALL LIGHT ANSWERED. TEMPERATURE IN ROOM ADJUSTED REQUESTED. MOUTH SWABS PROVIDED. NO ADDITIONAL REQUESTS.
--- NOTE | 2020-11-10 01:20 | NUR ---
C/o abd pain, medicated with Dilaudid 1mg IV, midline abd large, distended, firm, JEREMIAH, denies passing gas, f/c patent, draining dark yellow colored urine, scrotum elevated with towels, edematous. on room air. CBG 202 coverage of ss 5 units regular insulin. tolerating fluidswe.. repositions self SIMONE patne with scant amount of serous drainage
--- NOTE | 2020-11-10 05:00 | NUR ---
IN TO GET VITALS WITH RN, FRANZ EMPTIED AT THIS TIME, NO FURTHER NEEDS AT THIS TIME
--- NOTE | 2020-11-10 05:16 | NUR ---
Pt awake, on room air, midline abd incision w mihaela inplace, CDI, pink, edges well approx. Abd very large distended, firm to touch very JEREMIAH bowel tones. SIMONE w very scant amount of serous drainage R abd side. Pt stated he is belching and thinks he passed rectal gas. NPO, does own mouth care. below incision theres is a large protruding movable abd hernia. hernia was more prominent earlier on shift and pt pushed back in place with his hands. was concerned about it, no changes since then. Edematous scrotal area, elevated w pillows, f/c patent draining dark yellow slight pink tinged at this time. patent.Generalized edema present, pt is obese. IVF infusing w/o problems, no c/o adverse reaction to abx. Waas medicated with Dilaudid 1mg IV X2 with good pain relief, no c/o at this time. Helps with repositioning. scds on. Was moved from room 123 to Room 112, walked 1pa/fww, tolerated very well has slept off and on. Pleasant and coop. uses call light. oral swabs at hands reach, cont. to encourage to ambulate.Med ed done r/t HS meds, stated understanding. last CBG 205, received 5 units SQ Regular ss insulin. no c/o s/sx hypoglycemia.
--- NOTE | 2020-11-10 06:57 | NUR ---
Dr Dc in room examining pt. aware of low abd hernia, new orders changes. Pt aware of fluids restriction and need to increase ambulation.
--- NOTE | 2020-11-10 07:03 | NUR ---
Report from Shazia Bhatti RN. Patient sitting awake in bed. Denies pain and other needs at this time. Call light in reach, bed rails up X2.
--- NOTE | 2020-11-10 08:15 | NUR ---
Resting in bed. IV site WNL. Assessment completed. States pain is starting to increase and will likely want pain medication soon. Glucose check completed. AM medications administered. Informed of fluid restriction, verbalizes understanding. SIMONE drain non-compressed, full of air. Recompressed 3 times while this nurse in room, fills with air quickly. Will continue to monitor. Call light in reach, bed rails up X2.
--- NOTE | 2020-11-10 11:26 | NUR ---
States pain is tolerable at this time. Informed staff will be in to ambulate with patient before lunch. SIMONE drain re-compressed, full of air again prior to re-compression.
--- NOTE | 2020-11-10 12:24 | NUR ---
Pt ambulated in hallway 1 full lap w/ SBA and FWW. Pt tolerated well, c/o pain in upper abd 5/10. PRN pain medication administered per order. Pt now resting in bed safely w/ call light in reach. no other needs at this time.
--- NOTE | 2020-11-10 14:14 | NUR ---
Blood glucose obtained. Insulin given as prescribed. Educated on signs of hypoglycemia and to inform staff if he is having symptoms of low blood glucose, verbalizes understanding. Broth and tea provided. Denies other needs at this time. Call light in reach, bed rails up X2. Assessment completed.
--- NOTE | 2020-11-10 15:47 | NUR ---
Spoke with pt and he is feeling better. Remains on limited liquids. Using mouth swabs. Plans on following orders. Denies needs.
--- NOTE | 2020-11-10 15:56 | NUR ---
SIMONE bulb continues to pull air. 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 Pulled bulb off of tubing, gloria of air heard from tubing of SIMONE site noted. Bulb replaced, begins pulling serous drainage when bulb compressed. Will continue to monitor.
--- NOTE | 2020-11-10 16:02 | NUR ---
Dr. Dc notified of air into SIMONE and gloria of air from abdomen. Telephone Orders Dr. Dc/Yenifer Trivedi RN, to make patient NPO and obtain flat and upright xray of abdomen.
--- NOTE | 2020-11-10 17:47 | NUR ---
Dr. Dc in to assess patient.
--- NOTE | 2020-11-10 18:34 | NUR ---
Patient ambulates X2 today. Air from SIMONE drain today. Labs and X-rays completed, Will obtain CT this evening. Pain controlled with IV Dilaudid X1 today.
--- NOTE | 2020-11-10 19:33 | NUR ---
DR BRAVO CALLED REQUESTING IMAGING TO CALL HIM WITH RESULTS FROM CT. CALLED IMAGING AND GAVE HIS CELL PHONE NUMBER TO CALL WITH RESULTS.
--- NOTE | 2020-11-10 19:56 | NUR ---
IN ROOM TO CO-SIGN INSULIN. PT DENIES FURTHER NEEDS, CALL LIGHT IS CLOSE.
--- NOTE | 2020-11-10 20:03 | NUR ---
pt back from CT, c/o 510 abd pain. Medicated with Dilaudid 1mg IV. abd distended, softer, HEA, passing gas, upper abd midline incision with mihaela, cdi, below incision umb hernia w/o chnages, soft and movable. scrotum up in towels, less edematous, f/c patent, draining medium yellow urine. edema to feet and ankles, w/o changes, scds inplace. IVF infusing. on room air. cbg received 4 units insulin ss, NPO does own mouth care. call light at bedside
--- NOTE | 2020-11-10 20:17 | NUR ---
DR BRAVO IN ROOM TALKING TO PT ABOUT ABD CT RESULTS AND POSSIBLE PLACING NGT BACK ON , AND POSSIBLE TRANSFER TO ANOTHER [facility]
--- NOTE | 2020-11-10 20:35 | NUR ---
16FR NGT PLACED L NARE, WITH INMEDIATE RETURN OF LARGE AMOUNT OF AIR AND GREEN COLORED DRAINAGE. WILL NOTIFY DI FOR PLACEMENT XR OF NGT. PROCEDURE EXPLAINED, PT COOPERATIVE
--- NOTE | 2020-11-10 21:11 | NUR ---
abd xr done as per Dr Dc along with CXR for NGT placement and to review abd gas after placement. Pt tolerating well. Dr Dc in room. NGT pulled back about an inch. with inmediate return of thick green-brown drainage. NGT to LIWS. Dr Dc assessing pt and talking to via cell phone r/t to pts care.
--- NOTE | 2020-11-10 22:05 | NUR ---
hob elevated, ngt patent, to LIWS, draining dark brown colored drainage. pt tolerating well, no c/o adverse reaction to potassium rider
--- NOTE | 2020-11-10 22:30 | NUR ---
in to assist pt with positioning, noted pt ng tube was disconnected from suct, reconnected pt, new pillow case and gown provided to pt, pt cleaned up, no further needs at this time
--- NOTE | 2020-11-11 00:03 | NUR ---
flagyl 2 bags of 500mg iv started. no c/o adverse reaction to cefepime or K rider. hob elevated, NGT patent, draining brown-green colored thick drainage to ILWS, parul w small amount of serous drainage and air,
--- NOTE | 2020-11-11 01:31 | NUR ---
Awakes easily, hob elevated, L nare NGT patent, to ILWS, draining green-brown thick drainage. abd softer, less distended, midline incision with mihaela in place, SIMONE r abd with scant amount of serous drainage, aired out. scds in place, repositions self. c/o abd pain and was medicated with Dilaudid 1mg IV. no adverse reaction to abx or K rides
--- NOTE | 2020-11-11 05:12 | NUR ---
PT ON ROOM AIR, NGT INSERTED 11/10 LEFT NARE, IMMEDIATE RETURN OF LARGE AMOUNT OF GAS AND THICK GREEN DRAINAGE. NGT TO LIWS. UPPER ABD MIDLINE INCISION WITH OREN, EDGEES WELL APPROX, DRY, PINK, NO DRAINAGE. RIGHT BELOW AND ABOVE UMBILICAL AREA HERNIA MUCH DECREASED IN VISUAL SIZE, SOFT, MOVABLE. ABD LESS DISTENDED, JEREMIAH, LESS FIRM, SOFT, R SIDE MORE THAN LEFT. DENIES PASSING GAS THIS SHIFT. SIMONE WITH CREAMY-SEROUS PURULENT DRAINAGE PATENT. POTASSIUM RIDER, FLAGYL, CEFEPINE ABX ,IVF INFUSING W/O PROBLEMS. TOLERATING WELL. SCDS IN PLACE. NPO DOES OWN MOUTH CARE. HAS BEEN MEDICATED WITH DILAUDID 2X WITH GOOD PAIN RELIEF. CXR FOR NGT PLACEMENT NORMAL. HAD BEEN TO DI FOR ABD XR LATE IN AM SHIFT AND IT SHOWED SOME ABNORMALITIES, ABD AIR, SEE REPORT. CT OF ABD ORDERED BY . SEE REPORT DR BRAVO CAME IN AND TALKED TO BOTH PT AND ABOUT ABD CT RESULT. TX AND POSSIBLE TRANSFER TO A [facility]. PT WAS ANXIOUS, REASSURED.
--- NOTE | 2020-11-11 06:42 | NUR ---
dr garza in room earlier, pt denies c/o pain,stated passing gas again, abd soft still distended. NGT patent to ALAN
--- NOTE | 2020-11-11 09:10 | NUR ---
Spoke with pt. He will transfer to [facility] today. Denies needs.
== END 2020-11-11 09:05 | disposition short-term general hospital (02) | DRG 327 ==
LOC: ED 11:57 → CCU 18:53 → MS 18:53 → CCU 11-05 20:42 → MS 11-06 06:45
PROVIDERS: ADMIT Colon & Rectal Surgery; ATTEND Colon & Rectal Surgery
PROC: 3E0T3BZ Introduction of Anesthetic Agent into Peripheral Nerves and Plexi, Percutaneous Approach (ICD-10-PCS; 2020-11-04)
PROC: 3E0T33Z Introduction of Anti-inflammatory into Peripheral Nerves and Plexi, Percutaneous Approach (ICD-10-PCS; 2020-11-04)
PROC: 0DU607Z Supplement Stomach with Autologous Tissue Substitute, Open Approach (ICD-10-PCS; principal; 2020-11-04 20:00)
DX: K25.5 Chronic or unspecified gastric ulcer with perforation (principal); N17.9 Acute kidney failure, unspecified; T85.638A Leakage of other specified internal prosthetic devices, implants and grafts, initial encounter; Z68.42 Body mass index [BMI] 45.0-49.9, adult; G89.18 Other acute postprocedural pain; Z20.822 Contact with and (suspected) exposure to COVID-19; E66.9 Obesity, unspecified; K57.90 Diverticulosis of intestine, part unspecified, without perforation or abscess without bleeding; E11.9 Type 2 diabetes mellitus without complications; E78.5 Hyperlipidemia, unspecified; E03.9 Hypothyroidism, unspecified; I10 Essential (primary) hypertension; E83.39 Other disorders of phosphorus metabolism; Z79.899 Other long term (current) drug therapy; Z79.82 Long term (current) use of aspirin; Z79.4 Long term (current) use of insulin
CPT/HCPCS: 00790; 36415; 64448; 71045; 74018; 74019; 74177; 76942; 80048; 80053; 81001; 83036; 83605; 83690; 83735; 84100; 84134; 85025; 87040; 93005; 93010; 96365; 96375; 99285-25; C9113; C9803; J0131; J0330; J0692; J1100; J1170; J1644; J1650; J1815; J1885; J1940; J2405; J2704; J3010; J3475; J3480; J7030; J7060; J7121; U0003

== ENCOUNTER 2024-04-11 10:50 | Emergency (ER) | payer BC ==
[~2024-04-11] VITALS: Ht 170.2 cm; Wt 118.8 kg
[~2024-04-11 10:50] MED LIST changes: +ASTAXANTHIN4 MG PO; +COQ-1030 MG PO; +DIGESTIVE ENZY1 EAC2 PO; +K2-D3 10,000 U1 EACH PO; +MILK THISTLE175 MG PO; +MIXED TOCOTRIE1 EACH PO; +MULTI VITAMIN1 EACH PO; +NP THYROID90 MG PO; +OMEPRAZOLE20 MG PO; +PAIN RELIEF325 MG PO; +PRILOSEC OTC20 MG PO; +PROBIOTIC1 EAC7 PO; +TURMERIC500 M2 PO
[2024-04-11] MEDS ORDERED: METFORMIN HCL500 M1 PO (11:06)
[2024-04-11] MEDS ORDERED: LASIX40 MG PO (11:06)
[2024-04-11] MEDS ORDERED: LEVOTHYROXINE100 MC2 PO (11:07)
[2024-04-11] MEDS ORDERED: ALDACTONE50 MG PO (11:08)
[2024-04-11] MEDS ORDERED: FISH OIL 1,201200 MG PO (11:08)
[2024-04-11] MEDS ORDERED: OZEMPIC0.25 MG/02 (11:09)
[2024-04-11 11:40] LABS: BASOPHILS 0.2 % (0-2); EOSINOPHILS 0.1 % (0-6); HEMATOCRIT 41.4 % (35.0-50.0); HEMOGLOBIN 14.6 g/dL (12.0-18.0); LYMPHOCYTES 6.8 % (24-44); MCHC 35.2 g/dl (30-36); MONOCYTES 5.5 % (0-12); NEUTROPHILS 87.4 % (39-80); PLATELET COUNT 253 K/uL (140-440); RBC 4.71 M/ul (4.3-5.7); RDW 13.8 (10.5-15.0)
[2024-04-11 11:54] LABS: ALBUMIN 2.9 g/dL (3.4-5.0); ALBUMIN/GLOBULIN RATIO 0.73 (1.1-2.4); ANION GAP 14.1 (7-21); BILIRUBIN, TOTAL 0.9 ng/dL (0.2-1.0); BUN/CREATININE RATIO 27.61 (6.0-28.6); CALCIUM 9.5 mg/dL (8.5-10.1); CREATININE, SERUM 1.05 mg/dL (0.70-1.30); POTASSIUM 4.1 mmol/L (3.5-5.1); PROTEIN, TOTAL 6.9 g/dL (6.4-8.2)
[2024-04-11 12:53] LABS: BILIRUBIN, URINE NEGATIVE (negative); BLOOD/HGB, URINE NEGATIVE (Negative); KETONE, URINE NEGATIVE (Negative); LEUK ESTERASE, URINE NEGATIVE (negative); NITRITE, URINE NEGATIVE (negative)
[2024-04-11 12:58] LABS: BACTERIA, URINE NONE SEEN /hpf (negative); CASTS, URINE NONE SEEN \\lpf; COLLECTION TYPE, URINE CLEAN CATCH; CRYSTALS, URINE NONE SEEN (0-1+); EPITHELIAL CELLS, URINE SQUAMOUS 1+ /lpf (0-1+); RED BLOOD CELLS, URINE 0-1 /hpf (0-5); REFLEX CULTURE, URINE No (No)
[2024-04-11] MEDS ORDERED: HYDROCODON-ACE1 EA10 PO (15:09)
[2024-04-11] MEDS ORDERED: ONDANSETRON ODT4 MG PO (15:10)
[2024-04-11 16:11] VITALS: BP 129/69
== END 2024-04-11 16:11 | disposition home or self-care (01) ==
LOC: ED 10:50
PROVIDERS: Emergency Medicine
DX: R10.12 Left upper quadrant pain (principal); K43.9 Ventral hernia without obstruction or gangrene; E11.9 Type 2 diabetes mellitus without complications; I10 Essential (primary) hypertension; Z79.4 Long term (current) use of insulin; Z79.85 Long-term (current) use of injectable non-insulin antidiabetic drugs; Z79.84 Long term (current) use of oral hypoglycemic drugs; Z79.890 Hormone replacement therapy; Z79.899 Other long term (current) drug therapy
CPT/HCPCS: 36415; 74177; 80053; 81001; 83690; 85025; 99284-25